=== PATIENT | male | born 1955 | race Caucasian/White ===

== ENCOUNTER → 2016-12-21 | Outpatient (REF) | payer BC | LOC: M LAB REF 13:37 | PROVIDERS: ATTEND Nurse Practitioner Family | DX: Z51.81 Encounter for therapeutic drug level monitoring (principal); Z79.899 Other long term (current) drug therapy; R56.9 Unspecified convulsions ==

== ENCOUNTER → 2017-07-05 | Outpatient (REF) | payer BC | LOC: M LAB REF 13:10 | PROVIDERS: ATTEND Nurse Practitioner Family | DX: R56.9 Unspecified convulsions (principal); Z79.899 Other long term (current) drug therapy ==

== ENCOUNTER → 2018-01-01 | Outpatient (REF) | payer BC ==
[2018-01-01 19:26] LABS: VALPROIC ACID (DEPAKOTE) 65.4 UG/ML (50.0-100.0)
== END ==
LOC: M LAB REF 17:43
DX: Z79.899 Other long term (current) drug therapy (principal); R56.9 Unspecified convulsions
CPT/HCPCS: 80164

== ENCOUNTER → 2018-06-27 | Outpatient (REF) | payer BC ==
[2018-06-27 13:41] LABS: VALPROIC ACID (DEPAKOTE) 82.9 UG/ML (50.0-100.0)
== END ==
LOC: M LAB REF 12:07
DX: R56.9 Unspecified convulsions (principal)
CPT/HCPCS: 80164

== ENCOUNTER → 2019-01-24 | Outpatient (REF) | payer BC ==
[~2019-01-24] MED LIST: DEPA1TAB3 PO
== END ==
LOC: M LAB REF 12:32
PROVIDERS: ATTEND Nurse Practitioner Family
DX: R56.9 Unspecified convulsions (principal)

== ENCOUNTER 2019-02-04 10:51 | Day surgery (SDC) | payer BC ==
[~2019-02-04] VITALS: Ht 172.7 cm; Wt 79.9 kg
[~2019-02-04 10:51] MED LIST changes: +NS 1,000 ML IV ONE
[2019-02-04] MEDS ORDERED: LIDOCAINE 2% INJ 100 MG/5 ML SDV (FOR ANES.) As Ordered ONE (11:41)
[2019-02-04] MEDS ORDERED: PROPOFOL 500 MG/50 ML VIAL As Ordered ONE (11:41)
--- NOTE | 2019-02-04 11:58 | ROOR ---
Patient Name: Syd Martin Procedure Date: 02/04/2019 11:39 AM Date of : 1955 Age: 63 Room: [facility] Gender: Male Note Status: Finalized Procedure: Total Colonoscopy to Cecum Indications: Screening for colorectal malignant neoplasm Providers: Brooks Ward MD Referring MD: KATYA BRANDT NP Requesting Provider: Medicines: Monitored Anesthesia Care Complications: No immediate complications. Procedure: Pre-Anesthesia Assessment: - The heart rate, respiratory rate, oxygen saturations, blood pressure, adequacy of pulmonary ventilation, and response to care were monitored throughout the procedure. The Colonoscope was introduced through the anus and advanced to the cecum, identified by appendiceal orifice and ileocecal valve. The colonoscopy was performed without difficulty. The patient tolerated the procedure well. The quality of the bowel preparation was excellent. Findings: The perianal and digital rectal examinations were normal. Non-bleeding internal hemorrhoids were found during retroflexion. The hemorrhoids were small and Grade I (internal hemorrhoids that do not prolapse). Scattered small-mouthed diverticula were found in the recto-sigmoid colon, sigmoid colon and descending colon. The exam was otherwise without abnormality on direct and retroflexion views. Impression: - Non-bleeding internal hemorrhoids. - Diverticulosis in the recto-sigmoid colon, in the sigmoid colon and in the descending colon. - The examination was otherwise normal on direct and retroflexion views. - No specimens collected. - The exam was otherwise normal to the cecum. Recommendation: - Patient has a contact number available for emergencies. The signs and symptoms of potential delayed complications were discussed with the patient. Return to normal activities tomorrow. Written discharge instructions were provided to the patient. - High fiber diet. - Discharge patient to home. - Continue present medications. - Repeat colonoscopy in 10 years for screening purposes. - Return to referring physician. - The findings and recommendations were discussed with the patient's family. Brooks Ward MD Brooks Ward MD 02/04/2019 11:57:18 AM Electronically signed by Brooks Ward MD Number of Addenda: 0 Note Initiated On: 02/04/2019 11:39 AM Estimated Blood Loss: Estimated blood loss: none.
[2019-02-04 12:28] VITALS: BP 124/73
== END 2019-02-04 12:27 | disposition home or self-care (01) ==
LOC: M OPP 10:51
PROVIDERS: ATTEND Internal Medicine Gastroenterology
DX: Z12.11 Encounter for screening for malignant neoplasm of colon (principal); K64.0 First degree hemorrhoids; K57.30 Diverticulosis of large intestine without perforation or abscess without bleeding

== ENCOUNTER → 2019-08-05 | Outpatient (REF) | payer BC ==
[~2019-08-05] MED LIST changes: -NS 1,000 ML IV ONE
== END ==
LOC: M LAB REF 12:06
PROVIDERS: ATTEND Nurse Practitioner Family
DX: R56.9 Unspecified convulsions (principal)

== ENCOUNTER → 2019-08-23 | Outpatient (REF) | payer BC ==
[2019-08-23 13:53] LABS: FOLATE 17.9 NG/ML
== END ==
LOC: M LAB REF 12:23
PROVIDERS: ATTEND Nurse Practitioner Family
DX: R94.5 Abnormal results of liver function studies (principal); R53.83 Other fatigue; R41.840 Attention and concentration deficit

== ENCOUNTER → 2020-01-06 | Outpatient (REF) | payer BC | LOC: M LAB REF 11:08 | PROVIDERS: ATTEND Nurse Practitioner Family | DX: R56.9 Unspecified convulsions (principal) ==

== ENCOUNTER → 2020-08-05 | Outpatient (REF) | payer BC | LOC: M LAB REF 12:11 | PROVIDERS: ATTEND Registered Nurse | DX: G40.89 Other seizures (principal) ==

== ENCOUNTER → 2020-08-31 | Outpatient (REF) | payer BC | LOC: M LAB REF 11:54 | PROVIDERS: ATTEND Internal Medicine | DX: G40.89 Other seizures (principal) ==

== ENCOUNTER → 2021-01-26 | Outpatient (REF) | payer BC | LOC: M LAB REF 16:49 | PROVIDERS: ATTEND Internal Medicine | DX: R56.9 Unspecified convulsions (principal) ==

== ENCOUNTER → 2021-05-06 | Outpatient (REF) | payer BC | LOC: M LAB REF 11:36 | PROVIDERS: ATTEND Registered Nurse | DX: R56.9 Unspecified convulsions (principal) ==

== ENCOUNTER → 2022-01-13 | Outpatient (REF) | payer MEDICARE | LOC: M LAB REF 12:02 | PROVIDERS: ATTEND Registered Nurse | DX: G40.89 Other seizures (principal); Z79.899 Other long term (current) drug therapy ==

== ENCOUNTER → 2022-08-09 | Outpatient (REF) | payer MEDICARE | LOC: M LAB REF 11:25 | PROVIDERS: ATTEND Internal Medicine | DX: G40.89 Other seizures (principal); R56.9 Unspecified convulsions ==

== ENCOUNTER → 2023-01-30 | Outpatient (REF) | payer MEDICARE | LOC: M LAB REF 11:29 | PROVIDERS: ATTEND Internal Medicine | DX: G40.89 Other seizures (principal) ==

== ENCOUNTER → 2023-08-17 | Outpatient (REF) | payer MEDICARE | LOC: M LAB REF 13:00 | PROVIDERS: ATTEND Internal Medicine | DX: G40.89 Other seizures (principal) ==

== ENCOUNTER → 2023-12-21 | Outpatient (REF) | payer MEDICARE | LOC: M LAB REF 16:43 | PROVIDERS: ATTEND Internal Medicine | DX: Z12.5 Encounter for screening for malignant neoplasm of prostate (principal); N40.1 Benign prostatic hyperplasia with lower urinary tract symptoms ==

== ENCOUNTER → 2024-02-26 | Outpatient (REF) | payer MEDICARE | LOC: M LAB REF 12:35 | PROVIDERS: ATTEND Internal Medicine | DX: G40.89 Other seizures (principal) ==

== ENCOUNTER → 2024-09-04 | Outpatient (REF) | payer MEDICARE | LOC: M LAB REF 12:59 | PROVIDERS: ATTEND Internal Medicine | DX: G40.89 Other seizures (principal) ==